=== PATIENT | female | born 1945 | race Caucasian/White ===

== ENCOUNTER 2017-02-03 15:47 | Outpatient (CLI) ==
[2017-02-03 16:49] LABS: ALBUMIN 3.7 g/dL (3.4-5.0); ALBUMIN/GLOBULIN RATIO 1.23; ANION GAP 17.5; BILIRUBIN,TOTAL 0.33 mg/dL (0.00-1.20); BUN/CREATININE RATIO 11.21; CALCIUM 9.9 mg/dL (8.2-10.2); CREATININE 1.07 mg/dL (0.60-1.30); MAGNESIUM 1.7 mg/dL (1.7-2.2); PHOSPHORUS 3.9 mg/dL (2.8-4.1); POTASSIUM 3.5 mmol/L (3.5-5.10); TOTAL PROTEIN 6.7 g/dL (5.8-8.1)
== END 2017-02-03 15:48 | disposition home or self-care (01) ==
LOC: LAB 15:47
PROVIDERS: ATTEND Nurse Practitioner Family
DX: M81.0 Age-related osteoporosis without current pathological fracture (principal)
CPT/HCPCS: 36415; 80053; 82306; 83735; 83970; 84100

== ENCOUNTER 2018-08-01 14:17 | Outpatient (CLI) | payer OTHER | END 2018-08-01 14:18 | disposition home or self-care (01) | LOC: LAB 14:17 | PROVIDERS: ATTEND Internal Medicine | DX: D64.9 Anemia, unspecified (principal) | CPT/HCPCS: 36415; 85025 ==

== ENCOUNTER 2018-08-03 08:55 | Outpatient (CLI) | payer OTHER ==
[2018-08-03 09:17] VITALS: BP 122/60; TEMP 98.3
[2018-08-03] MEDS ORDERED: PROLIA SUBCUT STA (09:19)
== END 2018-08-03 08:56 | disposition home or self-care (01) ==
LOC: OPMED 08:55
PROVIDERS: ATTEND Internal Medicine
DX: M81.0 Age-related osteoporosis without current pathological fracture (principal)
CPT/HCPCS: 96372

== ENCOUNTER 2018-08-09 09:28 | Outpatient (CLI) | END 2018-08-09 09:29 | disposition home or self-care (01) | LOC: LAB 09:28 | PROVIDERS: ATTEND Internal Medicine | DX: D64.9 Anemia, unspecified (principal) | CPT/HCPCS: 36415; 85025 ==